=== PATIENT | male | born 1970 | race Caucasian/White ===

== ENCOUNTER 2018-02-03 12:45 | Emergency (ER) | payer OTHER, SELFPAY ==
[2018-02-03 12:48] VITALS: BP 194/93; PULSE 98; RESP 14; TEMP 36.4; O2SAT 98
--- NOTE | 2018-02-03 16:02 | PC.NURSE ---
PT REPORTS pain on L anterior and posterior chest/back like tingling sensation with intermittent sharp, burning jolts for last 2wks. pt was evaluated at [facility] about a week ago and dx with chest wall pain. Had taken Tramadol which was effective for 1st day but has not been effective. pt denies sob, dizziness, N-V. Noticed no rash, redness, drainage on affected site. There was no rash in the past with this pain, pt states pain worse with being touched, vibration. Denies injury or trauma to the affected site.
[2018-02-03 16:46] VITALS: BP 172/82; PULSE 78; RESP 14; O2SAT 99
--- NOTE | 2018-02-03 21:35 | ED_ITS ---
HPI - Chest Pain <MONSERRAT Park-BC - Last Filed: 02/03/18 21:35> General Chief Complaint: Chest Pain Stated Complaint: Chest Pain Time Seen by Provider: 02/03/18 16:02 Source: patient Mode of arrival: ambulatory Limitations: no limitations History of Present Illness HPI narrative: Patient presents with chief complaint of left-sided chest pain for 3 weeks. He has its his electricity, shooting sensation only when his skin has touched. He states it starts distal to his left nipple radiates around to his back. States this is nonexertional and only happens when he is touched. He states this pain feels like it is stays on the skin. He was seen at the outside hospital for this and discharged with tramadol. He had a chest x-ray done. He denies any rash, fever, nausea, vomiting, diarrhea, shortness of breath, palpitations. Worsened by touch, but the pain goes away when nothing is touching his skin. Related Data Home Medications Medication Instructions Recorded Confirmed aspirin 81 mg PO DAILY 02/03/18 02/03/18 lisinopril 40 mg PO DAILY 02/03/18 02/03/18 metformin 1 tab PO BID 02/03/18 02/03/18 tramadol 1 tab PO PRN PRN 02/03/18 02/03/18 Previous Rx's Medication Instructions Recorded gabapentin 100 mg PO TID #30 cap 02/03/18 prednisone 40 mg PO DAILY #10 tab 02/03/18 Allergies Allergy/AdvReac Type Severity Reaction Status Date / Time No Known Drug Allergies Allergy Verified 02/03/18 12:52 Review of Systems <JAKOB Park - Last Filed: 02/03/18 21:35> Review of Systems GENERAL: Denies chills, fatigue, malaise, fever, sweats. HEENT: Denies sinus pain, ear pain, sore throat, difficulty swallowing, dizziness. RESPIRATORY: Denies dyspnea, cough, wheezing, hemoptysis, sputum. CARDIOVASCULAR: Denies chest pain, palpitations, orthopnea, edema, GASTROINTESTINAL: Denies nausea, vomiting, abdominal pain, diarrhea, constipation, melena. : Denies dysuria, frequency, incontinence, hematuria, urinary retention. MUSCULOSKELETAL: denies weakness, joint pain, or bony pain SKIN: see HPI NEUROLOGIC: See Hpi PSYCHIATRIC: No concerning psychosocial issues. 12 point review of systems is negative except for those stated above Exam <YAZ Park - Last Filed: 02/03/18 21:35> Narrative Exam Narrative: GENERAL: This is a well-nourished, well-developed patient, in no acute distress HEAD: Atraumatic. Normocephalic. No temporal or scalp tenderness. EYES: Pupils equal round and reactive. Extraocular motions intact. No scleral icterus. No injection or drainage. ENT: Nose without bleeding, purulent drainage or septal hematoma. Throat without erythema, tonsillar hypertrophy or exudate. Uvula midline. Airway patent. NECK: Trachea midline. No JVD or lymphadenopathy. Supple, nontender, no meningeal signs. CARDIOVASCULAR: Regular rate and rhythm without murmurs, gallops, or rubs. RESPIRATORY: Clear to auscultation. Breath sounds equal bilaterally. No wheezes , rales, or rhonchi. Pain noted on lateral chest wall compression, no pain noted on anterior posterior chest wall compression. GASTROINTESTINAL: Abdomen soft, non-tender, nondistended. No hepato-splenomegaly , or palpable masses. No guarding. EXTREMITIES: No clubbing, cyanosis, or edema. No joint tenderness, effusion, or edema noted. BACK: Nontender without deformity or crepitance. No flank tenderness. NEURO: AOx3. SKIN: No rash or erythema. no rash, erythema or ecchymosis noted on chest. Pain to palpation distal to left nipple radiate around to spine. Initial Vital Signs Initial Vital Signs: Vital Signs Temperature 97.6 F 02/03/18 12:48 Pulse Rate 98 H 02/03/18 12:48 Respiratory Rate 14 02/03/18 12:48 Blood Pressure 194/93 H 02/03/18 12:48 Pulse Oximetry 98 02/03/18 12:48 <Rowan Colorado DO - Last Filed: 02/04/18 08:26> Initial Vital Signs Initial Vital Signs: Vital Signs Temperature 97.6 F 02/03/18 12:48 Pulse Rate 98 H 02/03/18 12:48 Respiratory Rate 14 02/03/18 12:48 Blood Pressure 194/93 H 02/03/18 12:48 Pulse Oximetry 98 02/03/18 12:48 Course <YAZ Park - Last Filed: 02/03/18 21:35> Vital Signs - 8 hr 02/03/18 16:46 Pulse Rate 78 Respiratory Rate 14 Blood Pressure [Left Arm] 172/82 H Pulse Oximetry 99 <Rowan [place] DO - Last Filed: 02/04/18 08:26> Vital Signs - 8 hr 02/03/18 16:46 Pulse Rate 78 Respiratory Rate 14 Blood Pressure [Left Arm] 172/82 H Pulse Oximetry 99 MDM - Chest Pain <Rowan RickMONSERRAT-BC - Last Filed: 02/03/18 21:35> MDM Narrative Medical decision making narrative: Patient presented to complaint of Chest pain for 3 weeks. he states it is only on his skin. He declines cardiac workup at this point time as he has had an x-ray and been seen in an outside hospital. His exam is consistent with nerve pain, especially given the shooting and electric description. Exam does not reveal any shingles, but this pain started over 3 weeks ago so he is out of range of antiviral therapy at this point anyway. Again he declined a cardiac workup at this point time including EKG, lab work, chest x-ray.. I did agree to given prednisone as well as gabapentin for suspected nerve pain. I discussed at length return precautions including shortness of breath, heart attack symptoms or stroke symptoms. Patient no questions or concerns upon discharge. Discharge Plan Departure Patient Disposition: Home Clinical Impression: Non-cardiac chest pain Discharge Date/Time: 02/03/18 16:48 Interventions: ED Discharge Assessment Last Done: 02/03/18 16:47 Instructions: DI for Atypical Chest Pain, Neuropathic Pain Activity Restrictions/Additional Instructions: Please follow-up with the primary care provider regarding your pain in your chest wall. I am starting on gabapentin for nerve pain as well as prednisone for inflammation. I would continue to take NSAIDs such as ibuprofen around the clock for the next few days. Please come back to the emergency department for any concerns of chest pain, shortness of breath stroke or heart attack. Prescriptions: New prednisone 20 mg tablet 40 mg PO DAILY Qty: 10 RF: 0 gabapentin 100 mg capsule 100 mg PO TID Qty: 30 RF: 0 No Action tramadol 50 mg tablet 1 tab PO PRN PRN (Reason: Pain, Moderate) RF: 0 metformin 1,000 mg tablet 1 tab PO BID RF: 0 lisinopril 40 mg tablet 40 mg PO DAILY RF: 0 aspirin 81 mg Tablet,Delayed Release (Dr/Ec) 81 mg PO DAILY RF: 0 <Rowan [place] DO - Last Filed: 02/04/18 08:26> Cosign ED Attending Cosignature Attestation: I was immediately available in the department for consultation. This documentation has been reviewed and I agree with assessment and plan. Supervised by Rowan Colorado DO
== END 2018-02-03 16:48 | disposition home or self-care (01) ==
PROVIDERS: Emergency Provider Nurse Practitioner Family
DX: R07.89 Other chest pain (principal)
CPT/HCPCS: 99282

== ENCOUNTER 2018-04-29 14:25 | Emergency (ER) | payer OTHER, MEDICAID, SELFPAY ==
[2018-04-29 14:32] VITALS: BP 212/122; PULSE 101; RESP 17; TEMP 37.5; O2SAT 100; BMI 26.7
--- NOTE | 2018-04-29 15:03 | PC.NURSE ---
Pt states brought son in for evaluation and decided to check in as out of nerve medication dr gave him for his pain
--- NOTE | 2018-04-29 15:50 | ED_ITS ---
HPI - Back Pain/Injury General Chief Complaint: Chest Pain Stated Complaint: NERVE PAIN IN CHEST PAIN AND BACK Time Seen by Provider: 04/29/18 14:48 Source: patient Mode of arrival: ambulatory Limitations: no limitations History of Present Illness HPI Narrative: Patient complains of shooting pains/electrical shock from his back around the sides ribs. Patient also has had right-sided sciatica. States all the symptoms have been going on for months. He was placed gabapentin for this some months ago, and it helped very much. However, he stated he ran out of the medication, and at that time, he was in the midst of trying to get established with a primary care physician, so he could not get the gabapentin refill. He states that as soon as his gabapentin ran out, the symptoms came back. Patient states it really is not so much pain as the feeling of shocks in his upper back. However, the sciatica is painful. He categorize as his pain is about a 6/10. He states he has not been able to sleep at night because of the discomfort. No chest pain or shortness of breath otherwise. No abdominal symptoms. No other complaints at this time. He states that he cannot think of any specific incident that may have gotten this episode started, though he does note that he has a heavy 9-year-old special needs son, who frequently has emotional outbursts, and the patient has to try to physically restrain him and left him, and this has strained his back. 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 No bowel or bladder incontinence. No retention. Related Data Home Medications Medication Instructions Recorded Confirmed aspirin 81 mg PO DAILY 02/03/18 02/03/18 lisinopril 40 mg PO DAILY 02/03/18 04/29/18 metformin 1 tab PO BID 02/03/18 04/29/18 tramadol 1 tab PO PRN PRN 02/03/18 02/03/18 Previous Rx's Medication Instructions Recorded gabapentin 100 mg PO TID #30 cap 02/03/18 prednisone 40 mg PO DAILY #10 tab 02/03/18 gabapentin 300 mg PO BID #60 cap 04/29/18 Allergies Allergy/AdvReac Type Severity Reaction Status Date / Time No Known Drug Allergies Allergy Verified 04/29/18 14:31 Review of Systems Review of Systems All systems reviewed & are unremarkable except as noted in HPI and below Constitutional Denies chills, Denies fever(s), Denies lethargy and Denies weakness Eyes Denies change in vision, Denies eye discharge, Denies irritation and Denies loss of vision ENT Ears, Nose, Mouth, and Throat: Denies change in voice, Denies neck pain and Denies sore throat Cardiovascular Denies chest pain, Denies irregular heart rhythm, Denies lightheadedness, Denies palpitations, Denies dyspnea, Denies dyspnea on exertion and Denies orthopnea Respiratory Denies cough, Denies dyspnea, Denies dyspnea on exertion and Denies wheezing Gastrointestinal Gastrointestinal: Denies abdominal pain, Denies change in bowel habits, Denies diarrhea, Denies nausea and Denies vomiting Genitourinary Denies hematuria, Denies flank pain, Denies urinary incontinence and Denies urinary urgency Musculoskeletal Reports back pain (With sciatica and radiculopathy) and Denies neck pain Integumentary/Breasts Denies pruritus, Denies erythema, Denies rash and Denies wounds Neurologic Denies confusion, Denies loss of vision and Denies weakness Psychiatric Denies anxiety, Denies confusion, Denies depression, Denies homicidal ideation and Denies suicidal ideation Endocrine Denies palpitations Hematologic/Lymphatic Denies easy bruising Allergic/Immunologic Denies wheezing [facility] Medical History HTN (hypertension) (Acute) Back pain (Acute) Surgical History No pertinent past surgical history (Acute) Social History Smoking Status: Never smoker Exam Initial Vital Signs Initial Vital Signs: Vital Signs Temperature 99.5 F 04/29/18 14:32 Pulse Rate 101 H 04/29/18 14:32 Respiratory Rate 17 04/29/18 14:32 Blood Pressure 212/122 H 04/29/18 14:32 Pulse Oximetry 100 04/29/18 14:32 Const General: cooperative and well developed Nutritional Appearance: well nourished Orientation: alert, awake, oriented x3 and not confused HENMT Head: normocephalic and atraumatic Ears: external ears normal and TM's normal bilaterally Nose: external nose normal and No nasal discharge Face and sinus: sinuses nontender, face symmetric, no sinus tenderness and No dry mucous membranes Mouth: oral mucosae normal and moist mucous membranes Teeth and gingiva: dentition normal Throat: tonsils normal and uvula midline Eyes General: appearance normal, both eyes and all related structures Eyelids: eyelids normal Conjunctivae: conjunctivae normal Sclera: sclerae normal Pupils: PERRL EOM: EOM intact bilaterally Neck Neck: normal visual inspection, trachea midline, No lymphadenopathy, No midline deformity and No JVD Lymphatic: No lymphedema Chest Chest: normal inspection of the chest Resp Effort & Inspection: normal respiratory effort, able to speak in complete sentences, no respiratory distress and no use of accessory muscles Auscultation: clear to auscultation bilaterally, no rales, no rhonchi and no wheezes Cardio Rate: regular rate Rhythm: regular rhythm Heart Sounds: no click, no gallops, no murmurs and no rubs Pulses: normal peripheral pulses GI Inspection: non-distended Palpation: soft, no hepatosplenomegaly, No guarding, No pulsatile mass and No tender Auscultation: normal bowel sounds Back/Spine/Pelvis Back: No CVA tenderness Cervical Spine: cervical ROM normal and No pain with cervical ROM Thoracic/Lumbar Spine: thoracic and lumbar spine normal to inspection Other: Patient has tenderness of his bilateral thoracic paraspinal musculature with left greater than right. He also has tenderness of his right sacroiliac joint. Skin General: no rashes or lesions noted, No jaundice and No petechiae Neuro General: alert, oriented x3, gait normal and no focal motor deficits Speech: speech normal Extrem General: full ROM, no clubbing, cyanosis or edema, no pedal edema and no calf tenderness Psych Appearance: well kempt Mental Status: mental status grossly normal Attitude: cooperative Thought Content: normal and suicidality Judgment: judgment good Course Course Narrative: Patient was treated with gabapentin in the emergency department. I discussed with the patient that there has not been a specific incident that has precipitated his symptoms, but that most likely, the ongoing stresses to his back are contributing. I have discussed with the patient that the most helpful diagnostic study would likely be an MRI, which can be done non emergently as an outpatient. Patient has been on gabapentin previously, which she found to be helpful, and I have recommended that he start this again. I have given a dose here and prescription to go home with. I do not find any evidence of an emergent cause a complication of his back pain. Orders Ordered: Discontinued Medications Gabapentin (Neurontin) 300 mg PO NOW ONE Stop: 04/29/18 15:45 Last Admin: 04/29/18 15:55 Dose: Vital Signs - 8 hr 04/29/18 14:32 Temperature 99.5 F Pulse Rate 101 H Respiratory Rate 17 Blood Pressure 212/122 H Pulse Oximetry 100 MDM - Back Pain/Injury Medical Records Attestation: I reviewed the patient's medical records. ECG Data Attestation: I personally reviewed and interpreted this ECG as follows: (See below) Interpretation: A 12 lead EKG performed April 29, 2018 1442, as follows: Regular ventricular rhythm with a rate of 92 beats per minute NE interval 163 milliseconds QRS duration 101 milliseconds QTC intervals [address] T wave changes In summary, normal sinus rhythm with marked left axis deviation and nonspecific T-wave abnormality; abnormal EKG as interpreted by ED MD. Discharge Plan Departure Patient Disposition: Home Clinical Impression: Sciatica, Neuralgia Discharge Date/Time: 04/29/18 15:57 Interventions: ED Discharge Assessment Last Done: 04/29/18 15:55 Instructions: DI for Back Pain With Sciatica, DI for Neuralgia Prescriptions: New gabapentin 300 mg capsule 300 mg PO BID Qty: 60 RF: 0 No Action tramadol 50 mg tablet 1 tab PO PRN PRN (Reason: Pain, Moderate) RF: 0 metformin 1,000 mg tablet 1 tab PO BID RF: 0 lisinopril 40 mg tablet 40 mg PO DAILY RF: 0 aspirin 81 mg Tablet,Delayed Release (Dr/Ec) 81 mg PO DAILY RF: 0 prednisone 20 mg tablet 40 mg PO DAILY Qty: 10 RF: 0 gabapentin 100 mg capsule 100 mg PO TID Qty: 30 RF: 0
[2018-04-29 15:55] VITALS: BP 181/91; PULSE 90; RESP 20; O2SAT 100
== END 2018-04-29 15:57 | disposition home or self-care (01) ==
PROVIDERS: Emergency Provider Emergency Medicine; PCP Family Medicine
DX: M54.30 Sciatica, unspecified side (principal); R07.89 Other chest pain
CPT/HCPCS: 93005; 93010; 99282; 99283

== ENCOUNTER → 2019-05-03 12:34 | Outpatient (CLI) | payer OTHER, MEDICAID, SELFPAY ==
[2019-05-03 13:54] LABS: BUN Creatinine Ratio 30.9 (6-22); Blood Urea Nitrogen 34 mg/dL (9-20); Estimated Glomerular Filt Rate > 60.0 mL/min (>60)
[2019-05-03 15:44] LABS: Thyroid Stimulating Hormone 1.75 uIU/mL (0.47-4.68)
== END ==
PROVIDERS: Family Provider Family Medicine; PCP Family Medicine; Visit Provider Ophthalmology
DX: H49.12 Fourth [trochlear] nerve palsy, left eye (principal)
CPT/HCPCS: 36415; 82565; 83519; 84443; 84520; 86255

== ENCOUNTER → 2019-11-18 14:49 | Outpatient (CLI) | payer OTHER, MEDICAID, SELFPAY ==
[2019-11-18 15:16] LABS: BUN Creatinine Ratio 31.4 (6-22); Blood Urea Nitrogen 37 mg/dL (9-20); Calcium 9.2 mg/dL (8.4-10.2); Carbon Dioxide 24 mmol/L (22-32); Chloride 102 mmol/L (98-107); Cholesterol 148 mg/dL (140-199); Estimated Glomerular Filt Rate > 60.0 mL/min (>60); Glucose 321 mg/dL (70-100); HDL Cholesterol 49 mg/dL (40-60); HEMOLYSIS < 15 (0-50); LDL Cholesterol Calculated 47 mg/dL (<100); Potassium 3.9 mmol/L (3.4-5.1); Sodium 135 mmol/L (137-145); Triglycerides 262 mg/dL (35-150)
[2019-11-18 15:25] LABS: Hemoglobin A1C% w Est Avg Glu 10.2 % (4.0-6.0)
== END ==
PROVIDERS: Family Provider Family Medicine; PCP Student in an Organized Health Care Education/Training Program; Referring Provider Student in an Organized Health Care Education/Training Program; Visit Provider Student in an Organized Health Care Education/Training Program
DX: E11.9 Type 2 diabetes mellitus without complications (principal); K31.84 Gastroparesis
CPT/HCPCS: 36415; 80048; 80061; 83036

== ENCOUNTER → 2020-02-25 11:39 | Outpatient (CLI) | payer OTHER, MEDICAID, SELFPAY ==
[2020-02-25 12:45] LABS: Hemoglobin A1C% w Est Avg Glu 11.4 % (4.0-6.0)
[2020-02-25 12:47] LABS: BUN Creatinine Ratio 25.9 (6-22); Blood Urea Nitrogen 38 mg/dL (9-20); Estimated Glomerular Filt Rate 50.9 mL/min (>60)
[2020-02-25 14:32] LABS: Creatinine Urine Random 125.2 mg/dL
[2020-02-25 14:36] LABS: Microalbumi Creatinin Ratio Ur 47.1 ug/mg CR (<30); Microalbumin Urine Random 5.9 mg/dL (0-1.6)
== END ==
PROVIDERS: Family Provider Family Medicine; PCP Student in an Organized Health Care Education/Training Program; Referring Provider Student in an Organized Health Care Education/Training Program; Visit Provider Student in an Organized Health Care Education/Training Program
DX: E11.9 Type 2 diabetes mellitus without complications (principal); I10 Essential (primary) hypertension; N14.1 Nephropathy induced by other drugs, medicaments and biological substances; T50.8X5A Adverse effect of diagnostic agents, initial encounter
CPT/HCPCS: 36415; 82043; 82565; 82570; 83036; 84520

== ENCOUNTER → 2020-03-01 08:56 | Outpatient (CLI) | payer OTHER, MEDICAID, SELFPAY ==
--- NOTE | 2020-03-01 09:34 | DI.CT.S_ITS ---
PROCEDURE: CT ANGIO ABD AORTA RUNOFF INDICATIONS: Lower claudication symptoms- bilateral TECHNIQUE: After the administration of intravenous contrast, 2.5 mm sections acquired from T12 to the feet, with optional delayed image acquisition from the knees to the feet. 3-dimensional maximum intensity projection (MIP) coronal and sagittal reformats, and/or 3-dimensional volume rendering reformatting was then performed. For radiation dose reduction, the following was used: automated exposure control. COMPARISON: None. FINDINGS: Image quality: Excellent. Extravascular tissues: Lung bases are clear. Heart size is normal. Liver is normal in size and enhancement. Gallbladder is normal. Biliary system is non dilated. Pancreas enhances normally. Spleen is normal in size and enhancement. No adrenal nodules. Kidneys are normal in size and enhancement, without hydronephrosis. Non opacified bowel loops demonstrate normal wall thickness and enhancement. No free fluid or air. No retroperitoneal or mesenteric adenopathy. No ventral hernias. Bladder wall thickness is normal. No inguinal hernias or adenopathy. No suspicious bony lesions. No vertebral body compression fractures. Abdominal aorta: Normal caliber and widely patent with no significant atherosclerotic plaque or calcification. Major visceral branches of the abdominal aorta are widely patent. There is a sharp angulation of the celiac trunk around the median arcuate ligament without significant narrowing. Right lower extremity: The right common iliac, internal iliac, and external iliac arteries are widely patent. The common femoral artery, deep femoral artery, and superficial femoral artery are widely patent. The popliteal and infrapopliteal arteries are widely patent. Left lower extremity: The left common iliac, internal iliac, and external iliac arteries are widely patent. The common femoral artery, deep femoral artery, and superficial femoral artery are widely patent. The popliteal and infrapopliteal arteries are widely patent. IMPRESSION: Minimal atherosclerotic plaque and calcification in the abdominal aorta. There is no arterial stenosis or flow limitation to the lower extremities. Dictated by: Iftikhar Mendez M.D. on 03/01/2020 at 10:07 Approved by: Iftikhar Mendez M.D. on 03/01/2020 at 10:11
== END ==
PROVIDERS: Family Provider Family Medicine; PCP Student in an Organized Health Care Education/Training Program; Referring Provider Student in an Organized Health Care Education/Training Program; Visit Provider Student in an Organized Health Care Education/Training Program
DX: I73.9 Peripheral vascular disease, unspecified (principal)
CPT/HCPCS: 75635

== ENCOUNTER → 2020-05-25 11:48 | Outpatient (CLI) | payer OTHER, MEDICAID, SELFPAY ==
[2020-05-25 13:25] LABS: Hemoglobin A1C% w Est Avg Glu 13.4 % (4.0-6.0)
[2020-05-25 13:31] LABS: BUN Creatinine Ratio 24.1 (6-22); Blood Urea Nitrogen 33 mg/dL (9-20)
[2020-05-25 14:57] LABS: Creatinine Urine Random 171.9 mg/dL
[2020-05-25 14:59] LABS: Microalbumi Creatinin Ratio Ur 87.2 ug/mg CR (<30)
== END ==
PROVIDERS: Family Provider Family Medicine; PCP Student in an Organized Health Care Education/Training Program; Referring Provider Student in an Organized Health Care Education/Training Program; Visit Provider Student in an Organized Health Care Education/Training Program
DX: E11.9 Type 2 diabetes mellitus without complications (principal); I10 Essential (primary) hypertension
CPT/HCPCS: 36415; 82043; 82565; 82570; 83036; 84520

== ENCOUNTER → 2021-05-22 15:50 | Outpatient (CLI) | payer OTHER, MEDICAID, SELFPAY ==
[2021-05-22 16:39] LABS: COVID19 -Nasal RAPID POSITIVE (Negative)
== END ==
PROVIDERS: Family Provider Family Medicine; Referring Provider Nurse Practitioner Family; Visit Provider Nurse Practitioner Family
DX: U07.1 COVID-19 (principal); Z20.822 Contact with and (suspected) exposure to COVID-19
CPT/HCPCS: 87635

== ENCOUNTER 2021-10-31 21:21 | Emergency (ER) | payer OTHER, MEDICAID, SELFPAY ==
[2021-10-31 21:30] VITALS: BP 98/69; PULSE 108; RESP 16; TEMP 37.4; O2SAT 98; BMI 31.1
--- NOTE | 2021-10-31 21:44 | DI.RAD.S_ITS ---
PROCEDURE: XR CHEST 1V INDICATIONS: Chest pain TECHNIQUE: One view of the chest was acquired. COMPARISON: None. FINDINGS: Surgical changes and devices: None. Lungs and pleura: Lungs are clear. No pleural effusions or pneumothorax. Mediastinum: Mediastinal contours appear normal. Heart size is normal. Bones and chest wall: No suspicious bony lesions. Overlying soft tissues appear unremarkable. IMPRESSION: 1. No acute cardiopulmonary disease. Dictated by: Manav Suazo M.D. on 10/31/2021 at 23:17 Approved by: Manav Suazo M.D. on 10/31/2021 at 23:17
== END 2021-11-01 00:06 | disposition left against medical advice (07) ==
PROVIDERS: Emergency Provider Emergency Medicine; Family Provider Family Medicine; PCP Family Medicine Sports Medicine
DX: R07.9 Chest pain, unspecified (principal)
CPT/HCPCS: 71045; 93005; 93010; 99282

== ENCOUNTER → 2022-08-07 10:22 | Outpatient (CLI) | payer OTHER, MEDICAID, SELFPAY ==
[2022-08-07 11:11] LABS: Influenza A - CEPHEID Flu A NEGATIVE (NEGATIVE); Influenza B - CEPHEID Flu B NEGATIVE (NEGATIVE); Respiratory Syncytial Virus Negative (Negative)
[2022-08-07 11:12] LABS: COVID-19 CEPHEID 4-PLEX PCR Negative (Negative)
== END ==
PROVIDERS: Family Provider Family Medicine; PCP Family Medicine Sports Medicine; Visit Provider Registered Nurse
DX: R05.1 Acute cough (principal); Z20.822 Contact with and (suspected) exposure to COVID-19
CPT/HCPCS: 0241U